=== PATIENT | female | born 1975 | race Caucasian/White ===

== ENCOUNTER 2017-09-10 13:13 | Outpatient (RCR) | payer BC ==
[~2017-09-10 13:13] MED LIST: ACHYD1T PO; NITR-65 PO; TRIA1CAP4 PO
== END 2017-12-09 | disposition home or self-care (01) ==
LOC: LAB 13:13
PROVIDERS: ATTEND Urology
DX: Z87.442 Personal history of urinary calculi (principal)

== ENCOUNTER → 2018-10-12 | Outpatient (CLI) | payer BC ==
--- NOTE | 2018-10-13 08:23 | Diagnostic Imaging Report ---
INDICATION: Screening. EXAMINATION: Digital mammogram bilateral screening with 3-D tomosynthesis. The current study was also evaluated with a Computer Aided Detection (CAD) system. This study was compared to prior exams of 09/10/2017, 02/01/2016 and 12/31/2012. At this time, there are no current complaints. FINDINGS: The fibroglandular tissue in both breasts is heterogeneously dense. This does limit the sensitivity of this exam. In the 10 o'clock position of the right breast approximately 11 CM from the nipple, there is a 1.4 CM rounded density. The tomographic images suggested that this finding is a benign process as this lesion has a smooth border. Whether this is solid or cystic, however, is not certain. Ultrasound would be recommended for further evaluation. The overall appearance of the breasts has not changed significantly otherwise. There is no primary or secondary sign of malignancy noted. IMPRESSION: Ultrasound would be recommended for further evaluation of the benign-appearing nodular density in the upper-outer aspect of the right breast. ACR BI-RADS Category 0: Incomplete. (Needs additional imaging evaluation). Result letter will be mailed to the patient. Note: At least 10% of breast cancer is not imaged by mammography. Dictated by: Dictated on workstation # [id number]
== END ==
LOC: RAD 09:56
PROVIDERS: ATTEND Obstetrics & Gynecology
DX: Z12.31 Encounter for screening mammogram for malignant neoplasm of breast (principal)
CPT/HCPCS: 77067

== ENCOUNTER → 2018-10-19 | Outpatient (CLI) | payer BC ==
--- NOTE | 2018-10-19 14:55 | Diagnostic Imaging Report ---
INDICATION: Abnormal mammogram. This study is performed for further evaluation. COMPARISON: Correlation is made with the screening mammogram from 10/12/2018. FINDINGS: The recent screening study demonstrated a circumscribed mass in the upper outer right breast. Sonographic interrogation of the upper outer right breast does show a simple appearing cyst at the 9 o'clock location measuring 15 mm x 15 mm x 9 mm. There is a smaller cyst at the 10 o'clock location measuring 4 mm x 5 mm x 4 mm. No solid mass is detected. IMPRESSION: Simple cysts at the 9 and 10 o'clock locations of the right breast corresponding with the mammographic density. The patient may return to routine annual screening mammography. ACR BI-RADS Category 2: Benign findings. Dictated by: Dictated on workstation # [id number]
== END ==
LOC: RAD 13:25
PROVIDERS: ATTEND Obstetrics & Gynecology
DX: N60.01 Solitary cyst of right breast (principal)

== ENCOUNTER → 2019-05-16 | Outpatient (CLI) | payer BC ==
--- NOTE | 2019-05-16 18:42 | Diagnostic Imaging Report ---
INDICATION: Palpable lump in the right breast. CORRELATION is made with prior exam from 10/12/2018 and 09/10/2017. TECHNIQUE: 2-D and 3-D unilateral right diagnostic mammography was performed including CC, MLO and mediolateral views. A BB marker was placed at the area of palpable abnormality in the upper outer right breast. FINDINGS: The right breast is heterogeneously dense, limiting the sensitivity of mammography. There is a circumscribed density near the area of palpable abnormality in the upper outer right breast, suggestive of a cyst. This appears to have been present on prior exam. Even so, sonographic interrogation of this area is recommended. No suspicious calcifications are seen. IMPRESSION: BI-RADS Category 0 Circumscribed density in the upper-outer right breast near the palpable abnormality. Ultrasound evaluation is recommended and will be performed today. ACR BI-RADS Category 0: Incomplete. (Needs additional imaging evaluation). Result letter will be mailed to the patient. Note: At least 10% of breast cancer is not imaged by mammography. Dictated by: Dictated on workstation # [id number]
--- NOTE | 2019-05-16 19:14 | Diagnostic Imaging Report ---
INDICATION: Palpable lump in the right breast. CORRELATION is made with diagnostic mammogram earlier the same day. Sonographic interrogation area of palpable abnormality was performed. This correlates to the 9 o'clock location of the right breast approximately 7 cm from the nipple. There is a simple appearing cyst at this location measuring 1.4 x 0.9 the 1.3 cm. No solid mass is detected. IMPRESSION: BI-RADS 2 Simple cyst 9 o'clock location right breast corresponding to the palpable abnormality. ACR BI-RADS Category 2: Benign findings. Result letter will be mailed to the patient. Note: At least 10% of breast cancer is not imaged by mammography. Dictated by: Dictated on workstation # [id number]
== END ==
LOC: RAD 12:37
PROVIDERS: ATTEND Obstetrics & Gynecology
DX: N60.01 Solitary cyst of right breast (principal); N63.14 Unspecified lump in the right breast, lower inner quadrant

== ENCOUNTER → 2021-09-04 | Outpatient (CLI) | payer BC ==
--- NOTE | 2021-09-04 13:21 | Diagnostic Imaging Report ---
Indication: Routine screening. Comparison is made with prior mammogram 10/12/2018 and 09/10/2017. 2-D and 3-D bilateral screening mammography was performed with CAD. Both breasts remain heterogeneously dense, limiting the sensitivity of mammography. The overall parenchymal pattern appears to be stable. No dominant mass or malignant-appearing microcalcifications are seen. Axillae are unremarkable. IMPRESSION: BI-RADS Category 1 No mammographic features suspicious for malignancy are identified. ACR BI-RADS Category 1: Negative. Result letter will be mailed to the patient. Note: At least 10% of breast cancer is not imaged by mammography. Dictated by: Dictated on workstation # [id number]
== END ==
LOC: RAD 10:15
PROVIDERS: ATTEND Obstetrics & Gynecology
DX: Z12.31 Encounter for screening mammogram for malignant neoplasm of breast (principal)
CPT/HCPCS: 77063; 77067

== ENCOUNTER → 2021-11-05 | Outpatient (CLI) | payer BC ==
--- NOTE | 2021-11-05 12:27 | Diagnostic Imaging Report ---
INDICATION: Nephrolithiasis. EXAMINATION: KUB at 12:10 p.m. FINDINGS: There is an IUD. There is a small linear opacity projecting over the inferior pole of the left kidney that could be a calculus. This was faintly apparent on the prior study from 09/10/2017. There is also a questionable calcification in the upper pole of the left kidney. IMPRESSION: Small opacifications in the upper and lower poles of left kidney that could be renal calculi. Dictated by: Dictated on workstation # [id number]
== END ==
LOC: RAD 11:38
PROVIDERS: ATTEND Urology
DX: N20.0 Calculus of kidney (principal)
CPT/HCPCS: 74018

== ENCOUNTER → 2023-08-28 | Outpatient (CLI) | payer BC ==
--- NOTE | 2023-08-28 12:09 | Diagnostic Imaging Report ---
Indication: Routine screening. Comparison is made with prior mammograms 09/04/2021 and 10/12/2018. 2-D and 3-D bilateral screening mammography was performed with CAD. Both breasts are heterogeneously dense, limiting the sensitivity of mammography. The parenchymal pattern is stable. No mass or malignant-appearing microcalcifications are identified. Axillae are unremarkable. IMPRESSION: BI-RADS Category 1 No mammographic features suspicious for malignancy are identified. ACR BI-RADS Category 1: Negative. Result letter will be mailed to the patient. Note: At least 10% of breast cancer is not imaged by mammography. Dictated by: Dictated on workstation # [id number]
== END ==
LOC: RAD 10:15
PROVIDERS: ATTEND Family Medicine
DX: Z12.31 Encounter for screening mammogram for malignant neoplasm of breast (principal)
CPT/HCPCS: 77063; 77067